=== PATIENT | female | born 1995 | race African-American/Black ===

== ENCOUNTER 2018-09-29 10:49 | Inpatient (IN) | payer BC ==
[2018-09-29] MEDS ORDERED: CEFAZOLIN 2 GM/50 ML (PMX) 50 ML IVPB ×3 (11:29→11:32)
[2018-09-29] MEDS ORDERED: OXYTOCIN 30 UNITS/LR 500 ML IV ×6 (11:30→15:00)
[2018-09-29] MEDS ORDERED: METHYLERGONOVINE 0.2 MG INJ IM ×2 (11:30→13:00)
[2018-09-29] MEDS ORDERED: CARBOPROST 250 MCG INJ IM ×2 (11:30→13:00)
[2018-09-29] MEDS ORDERED: MISOPROSTOL 200 MCG TAB PR ×2 (11:30→13:00)
[2018-09-29 11:33] LABS: ADD MAN DIFF? NO
[2018-09-29] MEDS ORDERED: CITRIC ACID/NA CITRATE 30 ML CUP (11:33)
[2018-09-29 11:34] LABS: BASOPHILS % 0.3 % (0.0-2.0); EOSINOPHILS % 0.3 % (0.0-7.0); HEMATOCRIT 35.5 % (37.0-47.0); HEMOGLOBIN 12.4 g/dl (12.0-16.0); LYMPHOCYTES # 1.6 10^3/ul (0.8-2.9); LYMPHOCYTES % 13.8 % (15.0-51.0); MEAN CORPUSCULAR HEMOGLOBIN 33.2 pg (29.0-33.0); MEAN CORPUSCULAR HGB CONC 34.9 g/dl (32.0-37.0); MEAN CORPUSCULAR VOLUME 95.2 fl (82.0-101.0); MEAN PLATELET VOLUME 10.5 fl (7.4-10.4); MONOCYTE # 0.7 10^3/ul (0.3-0.9); MONOCYTES % 6.1 % (0.0-11.0); NEUTROPHIL # 9.1 10^3/ul (1.6-7.5); PLATELET COUNT 199 10^3/UL (140-415); RED BLOOD COUNT 3.73 10^6/ul (4.20-5.40)
[2018-09-29 11:34] LABS: WHITE BLOOD COUNT 11.6 10^3/ul (4.8-10.8)
[2018-09-29 11:54] LABS: INR 0.86; PROTIME 11.8 Sec (11.9-14.9); PT RATIO 0.9
[2018-09-29 11:55] LABS: PARTIAL THROMBOPLASTIN TIME 25.7 Sec (23.0-35.0)
[2018-09-29] MEDS: LACTATED RINGER'S 1,000 ML IV ×2 (12:02→17:20)
[2018-09-29] MEDS: CITRIC ACID/NA CITRATE 30 ML CUP PO (12:29)
[2018-09-29] MEDS ORDERED: morphine SULFATE/PF (10 MG/10 ML) INJ (12:37)
[2018-09-29] MEDS ORDERED: GLYCOPYRROLATE 0.4 MG INJ (12:37)
[2018-09-29] MEDS ORDERED: ONDANSETRON 4 MG INJ (12:37)
[2018-09-29] MEDS ORDERED: METOCLOPRAMIDE 10 MG INJ (12:52)
[2018-09-29] MEDS ORDERED: FENTAnyl 50 MCG/ML VIAL (12:54)
[2018-09-29] MEDS: CEFAZOLIN 2 GM/50 ML (PMX) 50 ML IVPB ×2 (13:00→21:10)
[2018-09-29] MEDS ORDERED: NA PHOSPHATE/BIPHOS 133 ML ENEMA PR (13:00)
[2018-09-29] MEDS ORDERED: HYDROCODONE/APAP (5/325) TAB PO ×2 (13:00)
[2018-09-29] MEDS ORDERED: METHYLERGONOVINE 0.2 MG TAB PO (13:00)
[2018-09-29] MEDS ORDERED: KETOROLAC 30 MG INJ (13:43)
[2018-09-29] MEDS ORDERED: ONDANSETRON 4 MG INJ IV ×2 (15:30)
[2018-09-29] MEDS: OXYTOCIN 30 UNITS/LR 500 ML IV ×3 (15:30→21:13)
[2018-09-29] MEDS ORDERED: DIPHENHYDRAMINE 50 MG INJ IV ×2 (15:30)
[2018-09-29] MEDS ORDERED: morphine 2 MG INJ IV ×2 (15:30)
[2018-09-29] MEDS ORDERED: KETOROLAC 30 MG INJ IV (15:30)
[2018-09-29] MEDS ORDERED: morphine (1 MG/ML) 10ML SYRINGE IV ×3 (15:30)
[2018-09-29] MEDS ORDERED: NALOXONE (0.4 MG/ML) INJ IV (15:30)
[2018-09-29] MEDS: morphine 2 MG INJ IV (16:26)
[2018-09-29] MEDS: IBUPROFEN 800 MG TAB PO ×2 (17:57→22:00)
[2018-09-29] MEDS: ACYCLOVIR 400 MG TAB PO (18:00)
[2018-09-29 19:42] LABS: RAPID PLASMA REAGIN NONREACTIVE (NR)
[2018-09-29] MEDS: KETOROLAC 30 MG INJ IV (20:35)
[2018-09-29] MEDS: LANOLIN HPA 1 PKT TOP (21:10)
[2018-09-29] MEDS: SENNA/DOCUSATE NA (8.6MG/50MG) TAB PO (21:10)
[2018-09-30] MEDS: ACYCLOVIR 400 MG TAB PO ×4 (00:28→23:58)
[2018-09-30] MEDS: KETOROLAC 30 MG INJ IV ×4 (03:09→23:59)
[2018-09-30] MEDS: CEFAZOLIN 2 GM/50 ML (PMX) 50 ML IVPB (05:04)
[2018-09-30] MEDS: LACTATED RINGER'S 1,000 ML IV (05:10)
[2018-09-30] MEDS: IBUPROFEN 800 MG TAB PO ×3 (06:00→21:58)
[2018-09-30 07:17] LABS: ADD MAN DIFF? NO
[2018-09-30 07:21] LABS: BASOPHILS % 0.2 % (0.0-2.0); EOSINOPHILS # 0.1 10^3/ul (0.0-0.5); EOSINOPHILS % 0.8 % (0.0-7.0); HEMATOCRIT 29.2 % (37.0-47.0); HEMOGLOBIN 10.1 g/dl (12.0-16.0); LYMPHOCYTES # 1.4 10^3/ul (0.8-2.9); LYMPHOCYTES % 15.6 % (15.0-51.0); MEAN CORPUSCULAR HEMOGLOBIN 33.1 pg (29.0-33.0); MEAN CORPUSCULAR HGB CONC 34.6 g/dl (32.0-37.0); MEAN CORPUSCULAR VOLUME 95.7 fl (82.0-101.0); MEAN PLATELET VOLUME 10.9 fl (7.4-10.4); MONOCYTE # 0.6 10^3/ul (0.3-0.9); MONOCYTES % 6.7 % (0.0-11.0); NEUTROPHIL # 6.7 10^3/ul (1.6-7.5); NEUTROPHILS % 76.1 % (39.0-77.0); PLATELET COUNT 159 10^3/UL (140-415); RED BLOOD COUNT 3.05 10^6/ul (4.20-5.40); RED CELL DISTRIBUTION WIDTH 13.2 % (11.5-14.5)
[2018-09-30 07:21] LABS: WHITE BLOOD COUNT 8.8 10^3/ul (4.8-10.8)
[2018-09-30] MEDS: SENNA/DOCUSATE NA (8.6MG/50MG) TAB PO ×2 (08:55→21:57)
[2018-09-30] MEDS: INFLUENZA VIRUS VACCINE 0.5 ML (DISPENSING) IM* (14:33)
[2018-10-01] MEDS: ACYCLOVIR 400 MG TAB PO ×4 (05:32→23:46)
[2018-10-01] MEDS: IBUPROFEN 800 MG TAB PO ×3 (05:33→21:57)
[2018-10-01] MEDS: SENNA/DOCUSATE NA (8.6MG/50MG) TAB PO ×2 (10:05→21:00)
[2018-10-02] MEDS: IBUPROFEN 800 MG TAB PO (05:25)
[2018-10-02] MEDS: ACYCLOVIR 400 MG TAB PO ×2 (05:25→13:14)
[2018-10-02] MEDS: SENNA/DOCUSATE NA (8.6MG/50MG) TAB PO (09:00)
[2018-10-02] MEDS ORDERED: MEASLES,MUMPS,RUBELLA VACCINE INJ SC* (09:00)
[2018-10-02] MEDS: DIPHTH/TET/ACEL PERTUSS (ADULT) 0.5 ML VIAL IM* (15:55)
== END 2018-10-02 16:20 | disposition home or self-care (01) | DRG 788 ==
LOC: OBT 10:49 → L-D 10:49 → OBT 10:49 → L-D 10:55 → PP1 17:10
PROVIDERS: Obstetrics & Gynecology
PROC: 10D00Z1 Extraction of Products of Conception, Low, Open Approach (ICD-10-PCS; principal; 2018-09-29 13:00)
DX: O98.32 Other infections with a predominantly sexual mode of transmission complicating childbirth (principal); A60.09 Herpesviral infection of other urogenital tract; O42.913 Preterm premature rupture of membranes, unspecified as to length of time between rupture and onset of labor, third trimester; G89.18 Other acute postprocedural pain; Z3A.36 36 weeks gestation of pregnancy; Z37.0 Single live birth; Z23 Encounter for immunization
CPT/HCPCS: 85025; 85610; 85730; 86592; 86850; 86900; 86901; 90686; 99464